=== PATIENT | female | born 1995 | race Caucasian/White ===

== ENCOUNTER 2020-02-21 06:50 | Outpatient (NON) | payer BC, SELFPAY ==
[2020-02-21 23:07] LABS: SARS-CoV-2 RNA PCR Negative
== END 2020-02-21 06:51 ==
PROVIDERS: PCP Nurse Practitioner; Visit Provider Registered Nurse
DX: R51 Headache (principal); R53.83 Other fatigue
CPT/HCPCS: 87635; C9803; U0003

== ENCOUNTER 2025-04-19 19:44 | Observation (INO) | payer OTHER, SELFPAY ==
--- NOTE | ~2025-04-19 | CT_ITS ---
EXAMINATION: CT abdomen pelvis w con DATE: 04/19/2025 23:32 INDICATION: Right lower quadrant abdominal pain. TECHNIQUE: Computed tomography (CT) of the abdomen and pelvis was performed with 100 mL Omnipaque 350 intravenous contrast. Automated exposure control and iterative reconstruction technique were employed. The dose-length product was 305.24 mGy-cm. COMPARISON: None. FINDINGS: The visualized portions of the lung bases demonstrate mild atelectasis. No pleural effusion. The heart size is normal. No pericardial effusion. The liver, gallbladder, spleen, pancreas, adrenal glands, and left kidney are normal. There is a delayed right-sided contrast nephrogram. There is mild right hydronephrosis. There is an 11 mm stone at right ureteropelvic junction. There are no dilated loops of bowel. The appendix is normal. There are no pathologically enlarged lymph nodes. There is a 3.0 cm cyst in right ovary. There is no free intraperitoneal fluid. There is mild thoracic and lumbar spondylosis. IMPRESSION: 1. 11 mm stone at right ureteropelvic junction with mild right hydronephrosis. 2. 3.0 cm cyst in right ovary, likely a follicular cyst. Reviewed, dictated and finalized at location E.
--- NOTE | ~2025-04-19 | XR_ITS ---
EXAMINATION: XR retrograde pyelo w/stent RT DATE: 04/20/2025 15:22 INDICATION: Right nephrolithiasis and hydronephrosis for internal ureteral stent placement TECHNIQUE: 21 fluoroscopic images of the abdomen and pelvis were obtained during procedure performed by Dr. Varma. Radiologist was not present for the imaging or procedure. The amount of fluoroscopy time used during this procedure was 1.1 minutes. Total DAP was 0.825 mGym^2. COMPARISON: CT dated 04/19/2025 FINDINGS: Initial image demonstrates cannulation of the left ureter with retrograde contrast injection demonstrating a normal left renal collecting system. Subsequent image demonstrates a catheter advanced to the region of the right ureteropelvic junction where there is a persistent 1.4 cm obstructing stone. Con trast injection demonstrates mild right hydronephrosis. IMPRESSION: 1. Mild right hydronephrosis with persistent likely partially obstructing 1.4 cm stone at the ureteropelvic junction. See procedure note for further detail. Reviewed, dictated and finalized at location A. IMPRESSION: 1. Mild right hydronephrosis with persistent likely partially obstructing 1.4 c m stone at the ureteropelvic junction. See procedure note for further detail.
[2025-04-19 19:45] VITALS: BP 134/83; PULSE 104; RESP 20; TEMP 36.6; O2SAT 100
[2025-04-19 21:56] VITALS: BP 122/63; PULSE 101; RESP 16; O2SAT 100
[2025-04-19 22:21] LABS: BEDSIDEPREGUCG Negative (Negative)
[2025-04-19 22:28] LABS: Hematocrit 41.2 % (37.0-47.0); Hemoglobin 13.3 g/dL (12.0-15.0); Immature Granulocyte Percent A 0.4 % (0-0.5); Lymphocytes Absolute Auto 1.93 K/mm3 (0.9-3.2); Mean Corpuscular HGB Conc 32.3 g/dl (32-36); Mean Corpuscular Hemoglobin 27.9 pg (26-34); Mean Corpuscular Volume 86.6 fl (80-100); Nucleated Red Blood Cells Absolute Auto 0.000 K/mm3 (0.0-0.012); Nucleated Red Blood Cells Perc 0.0 % (0.0-0.2); Platelet Count Result 205 k/mm3 (150-375); Red Blood Count 4.76 M/mm3 (4.2-5.4); White Blood Count 10.6 K/mm3 (4.5-10.0)
[2025-04-19 22:34] LABS: Add Urine Microscopic? YES; Appearance Urine Clear (Clear); Glucose Urine UA Negative (Negative); Leukocyte Esterase Ur 2+ LEU/UL (Negative); Nitrate Urine Negative (Negative); Non Pathogenic Casts 0-2; Specific Grav Ur 1.010 (1.001-1.035)
[2025-04-19 23:01] LABS: Alanine Aminotransferase 21 U/L (6-35); Albumin Level 4.5 g/dL (3.5-5.1); Alkaline Phosphatase 71 U/L (38-126); Anion Gap 11 mmol/L (4-12); Aspartate Amino Transferase 26 U/L (14-36); Bilirubin,Total 0.7 mg/dL (0.2-1.3); Blood Urea Nitrogen 14 mg/dL (7-17); Calcium 9.2 mg/dL (8.4-10.2); Carbon Dioxide 24 mmol/L (22-30); Chloride 103 mmol/L (98-107); Estimated CRCL calculation 86 ml/min; Estimated Glomerular Filt Rate > 60; Glucose 102 mg/dL (65-110); Lipase 49 U/L (23-300); Potassium 3.6 mmol/L (3.4-5.0); Sodium 138 mmol/L (137-145); Total Protein 8.0 g/dL (6.3-8.2)
--- NOTE | 2025-04-19 23:18 | ED.ABDPAIN ---
HPI - Abdominal Pain General Chief Complaint: Abdominal Pain <Nathaly Zamudio APRN - Last Filed: 04/20/25 03:53> Stated Complaint: right flank pain <Nathaly Zamudio APRN - Last Filed: 04/20/25 03:53> Time Seen by Provider: 04/19/25 22:52 <Nathaly Zamudio APRN - Last Filed: 04/20/25 03:53> History of Present Illness HPI narrative: Patient is a 29-year-old female presents to the ER with complaints of right lower quadrant abdominal pain that radiates to her right flank. She reports that her pain started on Thursday morning, 1 day ago. Patient endorses nausea and lightheadedness but denies vomiting. She denies any recent fevers, urinary symptoms, or chest pain. Patient endorses a history of IBS C and has had a colonoscopy in the past. She reports her last bowel movement was on Thursday and it was small. Patient has a Nexplanon so she is unsure as to when her last menstrual period to place. <Nathaly Zamudio APRN - Last Filed: 04/20/25 03:53> Related Data Home Medications: Home Medications ?Medication ?Instructions ?Recorded ?Confirmed ?Last Taken ?Type linaclotide 145 mcg capsule 290 mcg PO QAM 04/20/25 04/20/25 04/19/25 History (Linzess) <Nathaly Zamudio APRN - Last Filed: 04/20/25 03:53> Allergies/Adverse Reactions: Allergies Allergy/AdvReac Type Severity Reaction Status Date / Time No Known Allergies Allergy Verified 04/20/25 05:14 <Nathaly Zamudio APRN - Last Filed: 04/20/25 03:53> Review of Systems Review of Systems: All systems reviewed & are unremarkable except as noted in HPI and below <Nathaly Zamudio APRN - Last Filed: 04/20/25 03:53> PMFSH Family History Family History: Family History (Updated 04/20/25 @ 05:22 by Lucita Medina RN) Father Cancer Grandparent Cancer <Nathaly Zamudio APRN - Last Filed: 04/20/25 03:53> Social History Social History: Social History Smoking status: Never smoker Alcohol intake: never Substance use: never Lack of Transportation: No Lack of Food: Never True Current Housing: I Have Housing Concerned About Future Housing: No Difficulty Paying Gas/Electric Bills: No Difficulty Paying for Meds: No Currently Unemployed: No Education: High School Diploma/GED Difficulty w/ Childcare or Family Care: No Spiritual care concerns: No <Nathaly Zamudio APRN - Last Filed: 04/20/25 03:53> Exam Narrative: GENERAL: Ill appearing, well-nourished, non-toxic, in no acute distress. HEAD: Normocephalic, atraumatic. NECK: Supple. No adenopathy, no masses. RESPIRATORY: Airway patent, respirations nonlabored. Clear to auscultation bilaterally, no rales, rhonchi, wheezing. CARDIOVASCULAR: Regular rate and rhythm without murmurs, rubs, or gallops. Peripheral pulses 2+ and equal bilaterally. ABDOMINAL: Soft, RLQ tenderness, nondistended, no hepatosplenomegaly. Normoactive BS. MUSCULOSKELETAL: Moves all extremities. Strength/ROM intact without gross deformities. SKIN: Warm, dry, normal color. No rashes. NEURO: A&O X3. Speech clear. Cranial nerves II-XII intact. No ataxic movements. PSYCHIATRIC: Appropriate mood and affect. Normal interaction. <Nathaly Zamudio APRN - Last Filed: 04/20/25 03:53> Course CUSTOMER FIELD REPRESENTATIVE/PA Physician Supervision I was made aware that this patient was being admitted for pain control and been found to have an 11 mm stone. I was available for consultation while patient was in the emergency department but otherwise did not physically examine them and was not directly involved in their care. <Ama Heath MD - Last Filed: 04/21/25 08:05> Vital Signs Vital signs: Vital Signs Temperature 97.8 F 04/19/25 19:45 Pulse Rate 104 H 04/19/25 19:45 Respiratory Rate 20 04/19/25 19:45 Blood Pressure 134/83 04/19/25 19:45 Pulse Oximetry 100 04/19/25 19:45 Oxygen Delivery Room Air 04/19/25 19:45 Temperature 97.4 F L 04/20/25 22:42 Pulse Rate 82 04/20/25 22:42 Respiratory Rate 16 04/20/25 22:42 Blood Pressure 92/55 L 04/20/25 22:42 Pulse Oximetry 95 04/20/25 22:42 Oxygen Delivery Room Air 04/20/25 20:00 Oxygen Flow Rate 8 04/20/25 15:35 <Nathaly Zamudio APRN - Last Filed: 04/20/25 03:53> Vital Signs Temperature 97.8 F 04/19/25 19:45 Pulse Rate 104 H 04/19/25 19:45 Respiratory Rate 20 04/19/25 19:45 Blood Pressure 134/83 04/19/25 19:45 Pulse Oximetry 100 04/19/25 19:45 Oxygen Delivery Room Air 04/19/25 19:45 Temperature 97.4 F L 04/20/25 22:42 Pulse Rate 82 04/20/25 22:42 Respiratory Rate 16 04/20/25 22:42 Blood Pressure 92/55 L 04/20/25 22:42 Pulse Oximetry 95 04/20/25 22:42 Oxygen Delivery Room Air 04/20/25 20:00 Oxygen Flow Rate 8 04/20/25 15:35 <Ama Heath MD - Last Filed: 04/21/25 08:05> MDM - Abdominal Pain MDM Narrative Medical decision making narrative: Patient is a 29-year-old female presents to the ER with complaints of right lower quadrant abdominal pain that radiates to her right flank. She reports that her pain started on Thursday morning, 1 day ago. Patient endorses nausea and lightheadedness but denies vomiting. She denies any recent fevers, urinary symptoms, or chest pain. Patient endorses a history of IBS C and has had a colonoscopy in the past. She reports her last bowel movement was on Thursday and it was small. Patient has a Nexplanon so she is unsure as to when her last menstrual period to place. Labs Ordered: CBC, CMP, UA, lipase Imaging Ordered: CT abdomen pelvis Medications Ordered: Ceftriaxone 1 g IV, 1 L normal saline IV bolus, morphine 4 mg IV, Zofran 4 mg IV, Dilaudid 0.5 mg IV Results: Patient's CT scan indicates an obstructing 11 mm right proximal ureter stone. Mild hydronephrosis and delayed nephrogram of the right kidney. Mild perinephric stranding. Right ovarian cyst measures 3.6 x 2.9 cm. Diagnosis: Kidney stone Consults: 020- Urology, Dr. Varela, who advised pt be admitted to the hospital. He advised pt should be NPO at this time. Urology will consult pt in the morning. Results of imaging and lab work shared with patient and her family. It was advised patient be admitted to the hospital for further evaluation and treatment. Patient and her family verbalized understanding and are in agreement with plan. 0215- Spoke with Dr. Schneider, hospitalist, who was in agreement with plan for admission. Pt will be admitted to the med/surg floor. <Nathaly Zamudoi APRN - Last Filed: 04/20/25 03:53> Differential Diagnosis Differential diagnosis: Likely calculus of kidney, constipation, small bowel obstruction and other (Cholecystitis) <Nathaly Zamudio APRN - Last Filed: 04/20/25 03:53> Lab Data Attestation: I reviewed the patient's lab results. <Nathaly Zamudio APRN - Last Filed: 04/20/25 03:53> Result diagrams: 04/20/25 05:30 04/20/25 05:30 <Nathaly Zamudio APRN - Last Filed: 04/20/25 03:53> Labs: Lab Results 04/19/25 04/19/25 Range/Units 22:19 22:20 WBC 10.6 H (4.5-10.0) K/mm3 RBC 4.76 (4.2-5.4) M/mm3 Hgb 13.3 (12.0-15.0) g/dL Hct 41.2 (37.0-47.0) % MCV 86.6 (80-100) fl MCH 27.9 (26-34) pg MCHC 32.3 (32-36) g/dl RDW 13.2 (11.5-14.5) % Plt Count 205 (150-375) k/mm3 MPV 10.3 (7.4-10.4) fl Immature Gran % (Auto) 0.4 (0-0.5) % Neut % (Auto) 68.8 (45.5-73.1) % Lymph % (Auto) 18.3 (18.3-44.2) % Stewart % (Auto) 9.5 H (2.6-8.5) % Eos % (Auto) 2.5 (0-4.4) % Baso % (Auto) 0.5 (0.2-1.2) % Lymph # (Auto) 1.93 (0.9-3.2) K/mm3 Stewart # (Auto) 1.0 H (0.1-0.6) K/mm3 Eos # (Auto) 0.3 (0-0.3) K/mm3 Baso # (Auto) 0.1 (0.0-0.1) K/mm3 Abs Immat Gran (auto) 0.04 H (0.00-0.031) K/mm3 Absolute Neuts (auto) 7.3 H (1.3-6.7) K/mm3 Absolute Nucleated RBC 0.000 (0.0-0.012) K/mm3 Nucleated RBC % 0.0 (0.0-0.2) % Sodium 138 (137-145) mmol/L Potassium 3.6 (3.4-5.0) mmol/L Chloride 103 (98-107) mmol/L Carbon Dioxide 24 (22-30) mmol/L Anion Gap 11 (4-12) mmol/L BUN 14 (7-17) mg/dL Creatinine 0.90 (0.7-1.0) mg/dL Estim Creat Clear Calc 86 ml/min Estimated GFR > 60 (59 - ) Glucose 102 (65-110) mg/dL Calcium 9.2 (8.4-10.2) mg/dL Total Bilirubin 0.7 (0.2-1.3) mg/dL AST 26 (14-36) U/L ALT 21 (6-35) U/L Alkaline Phosphatase 71 (38-126) U/L Total Protein 8.0 (6.3-8.2) g/dL Albumin 4.5 (3.5-5.1) g/dL Lipase 49 (23-300) U/L Urine Color Yellow (Yellow) Urine Appearance Clear (Clear) Urine pH 7.5 (5.0-9.0) Ur Specific [place] 1.010 (1.001-1.035) Urine Protein Negative (Negative) mg/dL Urine Glucose (UA) Negative (Negative) mg/dL Urine Ketones Negative (Negative) mg/dL Ur Blood (Man) Negative (Negative) Urine Nitrate Negative (Negative) Urine Bilirubin Negative (Negative) Urine Urobilinogen 1.0 (<2.0) mg/dL Leukocyte Esterase Rfl 2+ H (Negative) VIOLETTE/UL Urine RBC 0-2 (0-2) /hpf Urine WBC 11-20 H (0-3) /hpf Ur Squamous Epith Cells None seen (Few) /hpf Urine Bacteria None seen /hpf Urine Casts 0-2 POC Urine HCG, Qual Negative (Negative) <Nathaly Zamudio, USER EXPERIENCE RESEARCHER - Last Filed: 04/20/25 03:53> Lab Results 04/19/25 04/19/25 Range/Units 22:19 22:20 WBC 10.6 H (4.5-10.0) K/mm3 RBC 4.76 (4.2-5.4) M/mm3 Hgb 13.3 (12.0-15.0) g/dL Hct 41.2 (37.0-47.0) % MCV 86.6 (80-100) fl MCH 27.9 (26-34) pg MCHC 32.3 (32-36) g/dl RDW 13.2 (11.5-14.5) % Plt Count 205 (150-375) k/mm3 MPV 10.3 (7.4-10.4) fl Immature Gran % (Auto) 0.4 (0-0.5) % Neut % (Auto) 68.8 (45.5-73.1) % Lymph % (Auto) 18.3 (18.3-44.2) % Stewart % (Auto) 9.5 H (2.6-8.5) % Eos % (Auto) 2.5 (0-4.4) % Baso % (Auto) 0.5 (0.2-1.2) % Lymph # (Auto) 1.93 (0.9-3.2) K/mm3 Stewart # (Auto) 1.0 H (0.1-0.6) K/mm3 Eos # (Auto) 0.3 (0-0.3) K/mm3 Baso # (Auto) 0.1 (0.0-0.1) K/mm3 Abs Immat Gran (auto) 0.04 H (0.00-0.031) K/mm3 Absolute Neuts (auto) 7.3 H (1.3-6.7) K/mm3 Absolute Nucleated RBC 0.000 (0.0-0.012) K/mm3 Nucleated RBC % 0.0 (0.0-0.2) % Sodium 138 (137-145) mmol/L Potassium 3.6 (3.4-5.0) mmol/L Chloride 103 (98-107) mmol/L Carbon Dioxide 24 (22-30) mmol/L Anion Gap 11 (4-12) mmol/L BUN 14 (7-17) mg/dL Creatinine 0.90 (0.7-1.0) mg/dL Estim Creat Clear Calc 86 ml/min Estimated GFR > 60 (59 - ) Glucose 102 (65-110) mg/dL Calcium 9.2 (8.4-10.2) mg/dL Total Bilirubin 0.7 (0.2-1.3) mg/dL AST 26 (14-36) U/L ALT 21 (6-35) U/L Alkaline Phosphatase 71 (38-126) U/L Total Protein 8.0 (6.3-8.2) g/dL Albumin 4.5 (3.5-5.1) g/dL Lipase 49 (23-300) U/L Urine Color Yellow (Yellow) Urine Appearance Clear (Clear) Urine pH 7.5 (5.0-9.0) Ur Specific [place] 1.010 (1.001-1.035) Urine Protein Negative (Negative) mg/dL Urine Glucose (UA) Negative (Negative) mg/dL Urine Ketones Negative (Negative) mg/dL Ur Blood (Man) Negative (Negative) Urine Nitrate Negative (Negative) Urine Bilirubin Negative (Negative) Urine Urobilinogen 1.0 (<2.0) mg/dL Leukocyte Esterase Rfl 2+ H (Negative) VIOLETTE/UL Urine RBC 0-2 (0-2) /hpf Urine WBC 11-20 H (0-3) /hpf Ur Squamous Epith Cells None seen (Few) /hpf Urine Bacteria None seen /hpf Urine Casts 0-2 POC Urine HCG, Qual Negative (Negative) <Ama Heath MD - Last Filed: 04/21/25 08:05> Imaging Data Attestation: I personally reviewed and interpreted this imaging study as follows: <Nathaly Zamudio APRN - Last Filed: 04/20/25 03:53> Radiologist's impression: ITS Impressions Abdomen/Pelvis CT 04/20/25 08:00 IMPRESSION: 1. 11 mm stone at right ureteropelvic junction with mild right hydronephrosis. 2. 3.0 cm cyst in right ovary, likely a follicular cyst. Patient's CT scan indicates an obstructing 11 mm right proximal ureteral stone. Mild hydronephrosis and delayed nephrogram of the right kidney. Mild perinephric stranding. Right ovarian cyst measures 3.6 x 2.9 cm. <Nathaly Zamudio APRN - Last Filed: 04/20/25 03:53> ITS Impressions Abdomen/Pelvis CT 04/20/25 08:00 IMPRESSION: 1. 11 mm stone at right ureteropelvic junction with mild right hydronephrosis. 2. 3.0 cm cyst in right ovary, likely a follicular cyst. <Ama Heath MD - Last Filed: 04/21/25 08:05> Discharge Plan Discharge Clinical Impression: Kidney stone on right side, Hydronephrosis, Urinary tract infection <Nathaly Zamudio APRN - Last Filed: 04/20/25 03:53> Patient Disposition: Still a Patient <Nathaly Zamudio APRN - Last Filed: 04/20/25 03:53> Condition: Stable <Nathaly Zamudio APRN - Last Filed: 04/20/25 03:53>
--- NOTE | 2025-04-19 23:24 | PC.NURSE ---
Pt. to CT.
[2025-04-19] MEDS: SODIUM CHLORIDE 0.9% IV 1,000 ML 999 ML IV CONT (23:40)
[2025-04-19] MEDS: ONDANSETRON INJ 4 MG/2 ML VIAL IV PUSH (23:40)
[2025-04-19] MEDS: MORPHINE SULFATE (*CRX) 4 MG/ML INJ IV PUSH (23:41)
[2025-04-20] VITALS (13 sets, daily range): BP systolic 92–135; BP diastolic 49–92; PULSE 82–128; RESP 13–20; TEMP 36.2–38.8; O2SAT 93–100; BMI 23.2
[2025-04-20] MEDS: cefTRIAXone 1 GM in SODIUM CHLORIDE 0.9% IV 50 ML 100 ML IVPB (01:03)
[2025-04-20] MEDS: HYDROmorphone HCL INJ (*CRX) 1 MG/ML SYR 0.5 MG IV PUSH ×2 (01:35→04:41)
--- NOTE | 2025-04-20 02:31 | P.HP_ITS ---
H&P: HPI History of Present Illness Date/Time: 04/20/25 02:31 Chief Complaint: Abdominal pain Narrative: 29-year-old female with PMH nicotine vaping, presents to [facility] ER on 04/19/2025 complaining of right-sided abdominal pain. She has a history of UTIs, this feels much worse. She does not have burning on urination. Urinalysis positive for leukocyte esterase and WBC. CT abdomen pelvis showing 1 1 mm right-sided proximal ureter stone. Urology consulted. Hospitalist being asked to admit. Patient received ceftriaxone, Dilaudid, morphine, 1 L normal saline bolus. Resting comfortably. Review of Systems Review of Systems: All systems reviewed & are unremarkable except as noted in HPI and below (Subjective) Meds Home Medications and Allergies Allergies Allergy/AdvReac Type Severity Reaction Status Date / Time No Known Allergies Allergy Verified 04/19/25 19:48 Vital Signs Vital Signs - 24 hr 04/19/25 19:45 04/19/25 21:56 04/20/25 01:06 Temperature 97.8 F Pulse Rate 104 H 101 H 106 H Respiratory Rate 20 16 13 Blood Pressure 134/83 122/63 135/86 Pulse Oximetry 100 100 100 Oxygen Delivery Room Air Room Air Exam Const: General: comfortable and no acute distress Eyes: Pupils: Equal, round and reactive pupils present Neck: Neck: supple Resp: Effort & Inspection: normal respiratory effort Auscultation: clear to auscultation bilaterally Cardio: Rate: regular rate Rhythm: regular rhythm GI: Inspection: non-distended GI Palp: Yes Soft to palpation, Yes Tenderness to palpation present (GI) and No Guarding due to palpation present (GI) Neuro: Motor exam (neuro): 5/5 motor strength present throughout Extrem: General: no edema H&P: Results Labs Labs: Short CBC 04/19/25 Range/Units 22:20 WBC 10.6 H (4.5-10.0) K/mm3 Hgb 13.3 (12.0-15.0) g/dL Hct 41.2 (37.0-47.0) % Plt Count 205 (150-375) k/mm3 BMP 04/19/25 22:20 Sodium 138 Potassium 3.6 Chloride 103 Carbon Dioxide 24 BUN 14 Creatinine 0.90 Glucose 102 Calcium 9.2 Liver Function 04/19/25 Range/Units 22:20 Total Bilirubin 0.7 (0.2-1.3) mg/dL AST 26 (14-36) U/L ALT 21 (6-35) U/L Alkaline Phosphatase 71 (38-126) U/L Albumin 4.5 (3.5-5.1) g/dL Urine 04/19/25 Range/Units 22:20 Urine Color Yellow (Yellow) Urine Appearance Clear (Clear) Urine pH 7.5 (5.0-9.0) Ur Specific [place] 1.010 (1.001-1.035) Urine Protein Negative (Negative) mg/dL Urine Glucose (UA) Negative (Negative) mg/dL Assessment and Plan Assessment and plan (1) Kidney stone on right side: Code(s): N20.0 - Calculus of kidney Status: Acute (2) Urinary tract infection: Code(s): N39.0 - Urinary tract infection, site not specified Status: Acute (3) Hydronephrosis: Code(s): N13.30 - Unspecified hydronephrosis Status: Acute Plan 29-year-old female with PMH nicotine vaping, presents to [facility] ER on 04/19/2025 complaining of right-sided abdominal pain. She has a history of UTIs, this feels much worse. She does not have burning on urination. Urinalysis positive for leukocyte esterase and WBC. CT abdomen pelvis showing 11 mm right-sided proximal ureter stone. Urology consulted. Hospitalist being asked to admit. Patient received ceftriaxone, Dilaudid, morphine, 1 L normal saline bolus. Resting comfortably. --- Fluids, pain control, Zofran p.r.n.. NPO. Urology to see. Follow-up urine culture. Received ceftriaxone. Patient wishes to be full code. SCDs. Hospitalist MIPS Advance Care Plan I have confirmed that the patient's Advanced Care Plan is present, code status is documented, or surrogate decision maker is listed in patient medical record.: Yes Medication Reconciliation I have utilized all available resources to obtain, update and review the patients current medications (includes all prescriptions, OTC, herbals, cannabis, and nutritional supplements).: Yes
[2025-04-20] MEDS: MORPHINE SULFATE (*CRX) 4 MG/ML INJ 2 MG IV PUSH ×5 (04:06→21:51)
[2025-04-20] MEDS: SODIUM CHLORIDE 0.9% IV 1,000 ML 125 ML IV CONT ×2 (05:09→12:08)
--- NOTE | 2025-04-20 05:19 | ADMGEN ---
This patient, Pretty Ly, was admitted to 3 [facility] Surg Room 310-01. Patient/family oriented to hospital policies and general routines including ID bracelet, bed and alarms, visiting hours, pain management, procedures, bathroom and other care routines, personal items, smoking policy, room service/diet, and visiting hours. Information on how to activate the Rapid Response Team has been discussed. Patient/Family are encouraged to report perceived risks to care and to ask questions if they do not understand what they are told or what they should do.
[2025-04-20 06:07] LABS: Hematocrit 36.5 % (37.0-47.0); Hemoglobin 11.8 g/dL (12.0-15.0); Immature Granulocyte Percent A 0.3 % (0-0.5); Lymphocytes Absolute Auto 1.25 K/mm3 (0.9-3.2); Mean Corpuscular HGB Conc 32.3 g/dl (32-36); Mean Corpuscular Hemoglobin 28.1 pg (26-34); Mean Corpuscular Volume 86.9 fl (80-100); Nucleated Red Blood Cells Absolute Auto 0.000 K/mm3 (0.0-0.012); Nucleated Red Blood Cells Perc 0.0 % (0.0-0.2); Platelet Count Result 171 k/mm3 (150-375); Red Blood Count 4.20 M/mm3 (4.2-5.4); White Blood Count 9.4 K/mm3 (4.5-10.0)
--- NOTE | 2025-04-20 06:12 | WPDURCON ---
Assessment and Plan Assessment and plan (1) Kidney stone on right side: Code(s): N20.0 - Calculus of kidney Status: Acute (2) Hydronephrosis: Code(s): N13.30 - Unspecified hydronephrosis Status: Acute (3) Urinary tract infection: Code(s): N39.0 - Urinary tract infection, site not specified Status: Acute Assessment and Plan: Cystoscopy with right ureteral stent placement today Definitive stone treatment with right ESWL once infection has been treated Urology Consult Note HPI Date Seen: 04/20/25 Requesting Physician: Jackelyn Schneider MD Primary Care Provider: Giulia Griggs, TIN WHIZ MACHINE OPERATOR Consult Narrative Narrative: Pretty Ly is a 29 year old female without prior history of urolithiasis presents the emergency department with right flank pain. She denies fevers chills gross hematuria but has had nausea. Imaging demonstrates an 11 mm right UPJ calculus. Review of Systems Review of Systems: All systems reviewed & are unremarkable except as noted in HPI and below PMFSH Family History Family History (Updated 04/20/25 @ 05:22 by Lucita Medina RN) Father Cancer Grandparent Cancer Social History Social History Smoking status: Never smoker Alcohol intake: never Substance use: never Lack of Transportation: No Lack of Food: Never True Current Housing: I Have Housing Concerned About Future Housing: No Difficulty Paying Gas/Electric Bills: No Difficulty Paying for Meds: No Currently Unemployed: No Education: High School Diploma/GED Difficulty w/ Childcare or Family Care: No Spiritual care concerns: No Meds Home Medications and Allergies Home Medications ?Medication ?Instructions ?Recorded ?Confirmed ?Type linaclotide 145 mcg capsule 290 mcg PO QAM 04/20/25 04/20/25 History (Linzess) Allergies Allergy/AdvReac Type Severity Reaction Status Date / Time No Known Allergies Allergy Verified 04/20/25 05:14 Vital Signs Vital Signs - 24 hr 04/19/25 19:45 04/19/25 21:56 04/20/25 01:06 Temperature 97.8 F Pulse Rate 104 H 101 H 106 H Respiratory Rate 20 16 13 Blood Pressure 134/83 122/63 135/86 Pulse Oximetry 100 100 100 Oxygen Delivery Room Air Room Air 04/20/25 04:10 04/20/25 04:15 Temperature Pulse Rate 103 H 103 H Respiratory Rate 20 20 Blood Pressure 132/78 132/78 Pulse Oximetry 99 99 Oxygen Delivery Exam Const: General: no acute distress Resp: Effort & Inspection: normal respiratory effort GI: Inspection: non-distended GI Palp: No abdominal tenderness and No Guarding due to palpation present (GI) Auscultation: normal bowel sounds Results Labs 04/19/25 22:20 04/19/25 22:20 Labs: Short CBC 04/19/25 Range/Units 22:20 WBC 10.6 H (4.5-10.0) K/mm3 Hgb 13.3 (12.0-15.0) g/dL Hct 41.2 (37.0-47.0) % Plt Count 205 (150-375) k/mm3 BMP 04/19/25 22:20 Sodium 138 Potassium 3.6 Chloride 103 Carbon Dioxide 24 BUN 14 Creatinine 0.90 Glucose 102 Calcium 9.2 Liver Function 04/19/25 Range/Units 22:20 Total Bilirubin 0.7 (0.2-1.3) mg/dL AST 26 (14-36) U/L ALT 21 (6-35) U/L Alkaline Phosphatase 71 (38-126) U/L Albumin 4.5 (3.5-5.1) g/dL Urine 04/19/25 Range/Units 22:20 Urine Color Yellow (Yellow) Urine Appearance Clear (Clear) Urine pH 7.5 (5.0-9.0) Ur Specific [place] 1.010 (1.001-1.035) Urine Protein Negative (Negative) mg/dL Urine Glucose (UA) Negative (Negative) mg/dL
[2025-04-20 06:19] LABS: INR 1.1; Prothrombin Time 14.0 Seconds (11.1-14.7)
--- NOTE | 2025-04-20 06:23 | WPDHPUPDATE1 ---
History and Physical Update Update Date/Time: 04/20/25 06:23 History and Physical has been reviewed, including an updated exam of the patient. There are NO changes in the patient's condition. Risks, benefits, and alternatives have been discussed and questions answered. Patient agrees to proceed with procedure.
[2025-04-20 06:35] LABS: Anion Gap 9 mmol/L (4-12); Blood Urea Nitrogen 10 mg/dL (7-17); Calcium 8.5 mg/dL (8.4-10.2); Carbon Dioxide 22 mmol/L (22-30); Chloride 107 mmol/L (98-107); Estimated CRCL calculation 89 ml/min; Estimated Glomerular Filt Rate > 60; Glucose 134 mg/dL (65-110); Magnesium 2.0 mg/dL (1.6-2.3); Potassium 3.8 mmol/L (3.4-5.0); Sodium 138 mmol/L (137-145)
[2025-04-20] MEDS: ONDANSETRON INJ 4 MG/2 ML VIAL IV PUSH ×2 (07:10→12:08)
--- NOTE | 2025-04-20 09:33 | PM.IMPN ---
Progress Note: A&P Assessment and Plan (1) Kidney stone on right side: Code(s): N20.0 - Calculus of kidney Status: Acute (2) Urinary tract infection: Code(s): N39.0 - Urinary tract infection, site not specified Status: Acute (3) Hydronephrosis: Code(s): N13.30 - Unspecified hydronephrosis Status: Acute Plan 29-year-old female with PMH nicotine vaping, presents to [facility] ER on 04/19/2025 complaining of right-sided abdominal pain. No dysuria or fevers. UA 10-20 WBC's, no RBC's nitrites, or visible bacteria. CT abdomen pelvis showed a 11 mm right-sided proximal stone in the proximal ureter and mild hydronephrosis. Urology consulted. s/p ceftriaxone. Also treated with Dilaudid, but prefers not to have that again. Ureteral stone Hydronephrosis CT abd/pelvis showed an 11mm right ureteropelvic junction with mild right hydronephrosis --Fluids, pain control --Urology following, s/p cystoscopy, right ureteral stent placement --Continue Ceftiraxone Pyuria--11-20 WBC's --Continue Ceftiraxone perioperative. Not clearly infected Acute pain --Oxycodone, Morphine prn --Resting comfortably. --Continue fluids --Zofran p.r.n. FULL CODE SCDs Time Spent With Patient Time: 59 minutes Subjective Date/time seen: 04/20/25 09:33 Interval history: Woke up from sleep and had mild nausea, CT abd/pelvis showed Right kidney stone/hydronephrosis. Urology consulted. Planning Cystoscopy with stent today She reports no dysuria prior to this so not clearly a UTI with 10-20 WBC's on UA. Planning right ESWL outpatient Review of Systems Review of Systems: All systems reviewed & are unremarkable except as noted in HPI and below (Subjective) Exam Narrative: General - Awake and alert. No acute distress Eyes - PERRLA, EOM intact ENT - No thrush, No erythema Neck - No noticeable or palpable swelling Lymph Nodes - No lymphadenopathy Cardiovascular - RRR no m/r/g, no JVD Lungs: Clear to auscultation, No wheezing, no use of accessory muscles, no crackles Skin - Skin warm and dry, no wounds or rashes Abdomen - Normal bowel sounds, abdomen soft and nontender Extremities - No edema, cyanosis or clubbing Musculoskeletal - 5/5 strength, normal range of motion, no swollen or erythematous joints. Neurological ? Alert and oriented x 3, CN 2-12 grossly intact. Psych: Normal mood and affect Objective Data Vital Signs Vital Signs: Vital Signs - 24 hr 04/19/25 19:45 04/19/25 21:56 04/20/25 01:06 Temperature 97.8 F Pulse Rate 104 H 101 H 106 H Respiratory Rate 20 16 13 Blood Pressure 134/83 122/63 135/86 Pulse Oximetry 100 100 100 Oxygen Delivery Room Air Room Air 04/20/25 04:10 04/20/25 04:15 04/20/25 04:55 Temperature 97.1 F L Pulse Rate 103 H 103 H 128 H Respiratory Rate 20 20 20 Blood Pressure 132/78 132/78 128/92 H Pulse Oximetry 99 99 93 Oxygen Delivery 04/20/25 06:32 Temperature Pulse Rate 128 H Respiratory Rate 20 Blood Pressure Pulse Oximetry 93 Oxygen Delivery Room Air Intake/Output Intake/Output: Intake & Output 04/17/25 04/18/25 04/19/25 04/20/25 23:59 23:59 23:59 23:59 Intake Total 1050 Balance 1050 Meds/Results Medications: Active Medications Generic Name Dose Route Start Last Admin Trade Name Freq PRN Reason Stop Dose Admin Sodium Chloride 1,000 mls @ 125 mls/hr 04/20/25 02:20 04/20/25 05:09 Normal Saline Iv IV CONT 125 mls/hr .Q8H ANALISA Administration Morphine Sulfate 2 mg 04/20/25 02:31 04/20/25 09:23 Morphine Sulfate (*Crx) 4 Mg/Ml Inj IV PUSH 2 mg Q2H PRN Administration Pain Rated 7-10 Ondansetron HCl 4 mg 04/20/25 02:19 04/20/25 07:10 Ondansetron Inj 4 Mg/2 Ml Vial IV PUSH 4 mg Q4H PRN Administration Nausea Radiology Results: ITS Impressions Abdomen/Pelvis CT 04/20/25 08:00 IMPRESSION: 1. 11 mm stone at right ureteropelvic junction with mild right hydronephrosis. 2. 3.0 cm cyst in right ovary, likely a follicular cyst. Labs Labs: Laboratory Results - last 24 hr 04/19/25 04/19/25 04/20/25 22:19 22:20 05:30 WBC 10.6 H 9.4 RBC 4.76 4.20 Hgb 13.3 11.8 L Hct 41.2 36.5 L MCV 86.6 86.9 MCH 27.9 28.1 MCHC 32.3 32.3 RDW 13.2 13.3 Plt Count 205 171 MPV 10.3 10.3 Immature Gran % (Auto) 0.4 0.3 Neut % (Auto) 68.8 74.1 H Lymph % (Auto) 18.3 13.3 L [place] % (Auto) 9.5 H 9.8 H Eos % (Auto) 2.5 2.1 Baso % (Auto) 0.5 0.4 Lymph # (Auto) 1.93 1.25 [place] # (Auto) 1.0 H 0.9 H Eos # (Auto) 0.3 0.2 Baso # (Auto) 0.1 0.0 Abs Immat Gran (auto) 0.04 H 0.03 Absolute Neuts (auto) 7.3 H 7.0 H Absolute Nucleated RBC 0.000 0.000 Nucleated RBC % 0.0 0.0 PT 14.0 INR 1.1 Sodium 138 138 Potassium 3.6 3.8 Chloride 103 107 Carbon Dioxide 24 22 Anion Gap 11 9 BUN 14 10 Creatinine 0.90 0.87 Estim Creat Clear Calc 86 89 Estimated GFR > 60 > 60 Glucose 102 134 H Calcium 9.2 8.5 Magnesium 2.0 Total Bilirubin 0.7 AST 26 ALT 21 Alkaline Phosphatase 71 Total Protein 8.0 Albumin 4.5 Lipase 49 Urine Color Yellow Urine Appearance Clear Urine pH 7.5 Ur Specific [place] 1.010 Urine Protein Negative Urine Glucose (UA) Negative Urine Ketones Negative Ur Blood (Man) Negative Urine Nitrate Negative Urine Bilirubin Negative Urine Urobilinogen 1.0 Leukocyte Esterase Rfl 2+ H Urine RBC 0-2 Urine WBC 11-20 H Ur Squamous Epith Cells None seen Urine Bacteria None seen Urine Casts 0-2 POC Urine HCG, Qual Negative Hospitalist MIPS Advance Care Plan I have confirmed that the patient's Advanced Care Plan is present, code status is documented, or surrogate decision maker is listed in patient medical record.: Yes Medication Reconciliation I have utilized all available resources to obtain, update and review the patients current medications (includes all prescriptions, OTC, herbals, cannabis, and nutritional supplements).: Yes
--- NOTE | 2025-04-20 14:06 | WPDANESEPPF ---
Anes - Initial Pre Proc Eval Procedure: Operation Date: 04/20/25 15:15 Proposed Procedures p Cystoscopy, Right Stent Placement - Jermaine Varma MD Date/Time: 04/20/25 14:06 Surgeon: Jackelyn Schneider MD Pre Op Diagnosis: Kidney stone (11mm), Mild hydronephrosis Patient Data Age: 29 Gender: F Height: 1.75 m Weight: 71.4 kg Last Vital Signs Temp 36.2 C L 04/20/25 04:55 Pulse 128 H 04/20/25 08:00 Resp 20 04/20/25 08:00 BP 128/92 H 04/20/25 04:55 Pulse Ox 93 04/20/25 08:00 O2 Del Method Room Air 04/20/25 08:00 Allergies Allergy/AdvReac Type Severity Reaction Status Date / Time No Known Allergies Allergy Verified 04/20/25 05:14 Home Medications ?Medication ?Instructions ?Recorded ?Confirmed ?Type linaclotide 145 mcg capsule 290 mcg PO QAM 04/20/25 04/20/25 History (Linzess) Laboratory Tests 04/19/25 04/19/25 04/20/25 22:19 22:20 05:30 WBC 10.6 H K/mm3 9.4 K/mm3 (4.5-10.0) (4.5-10.0) RBC 4.76 M/mm3 4.20 M/mm3 (4.2-5.4) (4.2-5.4) Hgb 13.3 g/dL 11.8 L g/dL (12.0-15.0) (12.0-15.0) Hct 41.2 % 36.5 L % (37.0-47.0) (37.0-47.0) MCV 86.6 fl 86.9 fl (80-100) (80-100) MCH 27.9 pg 28.1 pg (26-34) (26-34) MCHC 32.3 g/dl 32.3 g/dl (32-36) (32-36) RDW 13.2 % 13.3 % (11.5-14.5) (11.5-14.5) Plt Count 205 k/mm3 171 k/mm3 (150-375) (150-375) MPV 10.3 fl 10.3 fl (7.4-10.4) (7.4-10.4) Immature Gran % (Auto) 0.4 % 0.3 % (0-0.5) (0-0.5) Neut % (Auto) 68.8 % 74.1 H % (45.5-73.1) (45.5-73.1) Lymph % (Auto) 18.3 % 13.3 L % (18.3-44.2) (18.3-44.2) [place] % (Auto) 9.5 H % 9.8 H % (2.6-8.5) (2.6-8.5) Eos % (Auto) 2.5 % 2.1 % (0-4.4) (0-4.4) Baso % (Auto) 0.5 % 0.4 % (0.2-1.2) (0.2-1.2) Lymph # (Auto) 1.93 K/mm3 1.25 K/mm3 (0.9-3.2) (0.9-3.2) [place] # (Auto) 1.0 H K/mm3 0.9 H K/mm3 (0.1-0.6) (0.1-0.6) Eos # (Auto) 0.3 K/mm3 0.2 K/mm3 (0-0.3) (0-0.3) Baso # (Auto) 0.1 K/mm3 0.0 K/mm3 (0.0-0.1) (0.0-0.1) Abs Immat Gran (auto) 0.04 H K/mm3 0.03 K/mm3 (0.00-0.031) (0.00-0.031) Absolute Neuts (auto) 7.3 H K/mm3 7.0 H K/mm3 (1.3-6.7) (1.3-6.7) Absolute Nucleated RBC 0.000 K/mm3 0.000 K/mm3 (0.0-0.012) (0.0-0.012) Nucleated RBC % 0.0 % 0.0 % (0.0-0.2) (0.0-0.2) PT 14.0 Seconds (11.1-14.7) INR 1.1 Sodium 138 mmol/L 138 mmol/L (137-145) (137-145) Potassium 3.6 mmol/L 3.8 mmol/L (3.4-5.0) (3.4-5.0) Chloride 103 mmol/L 107 mmol/L (98-107) (98-107) Carbon Dioxide 24 mmol/L 22 mmol/L (22-30) (22-30) Anion Gap 11 mmol/L 9 mmol/L (4-12) (4-12) BUN 14 mg/dL 10 mg/dL (7-17) (7-17) Creatinine 0.90 mg/dL 0.87 mg/dL (0.7-1.0) (0.7-1.0) Estim Creat Clear Calc 86 ml/min 89 ml/min Estimated GFR > 60 > 60 (59 - ) (59 - ) Glucose 102 mg/dL 134 H mg/dL (65-110) (65-110) Calcium 9.2 mg/dL 8.5 mg/dL (8.4-10.2) (8.4-10.2) Magnesium 2.0 mg/dL (1.6-2.3) Total Bilirubin 0.7 mg/dL (0.2-1.3) AST 26 U/L (14-36) ALT 21 U/L (6-35) Alkaline Phosphatase 71 U/L (38-126) Total Protein 8.0 g/dL (6.3-8.2) Albumin 4.5 g/dL (3.5-5.1) Lipase 49 U/L (23-300) Urine Color Yellow (Yellow) Urine Appearance Clear (Clear) Urine pH 7.5 (5.0-9.0) Ur Specific [place] 1.010 (1.001-1.035) Urine Protein Negative mg/dL (Negative) Urine Glucose (UA) Negative mg/dL (Negative) Urine Ketones Negative mg/dL (Negative) Ur Blood (Man) Negative (Negative) Urine Nitrate Negative (Negative) Urine Bilirubin Negative (Negative) Urine Urobilinogen 1.0 mg/dL (<2.0) Leukocyte Esterase Rfl 2+ H VIOLETTE/UL (Negative) Urine RBC 0-2 /hpf (0-2) Urine WBC 11-20 H /hpf (0-3) Ur Squamous Epith Cells None seen /hpf (Few) Urine Bacteria None seen /hpf Urine Casts 0-2 POC Urine HCG, Qual Negative (Negative) Patient hx anesthesia problems: none Family hx anesthesia problems: none Results Review: All pre-operative results and documents have been reviewed as part of the pre-operative evaluation. [facility] Family History Family History (Updated 04/20/25 @ 05:22 by Lucita Medina RN) Father Cancer Grandparent Cancer Social History Social History Smoking status: Never smoker Alcohol intake: never Substance use: never Lack of Transportation: No Lack of Food: Never True Current Housing: I Have Housing Concerned About Future Housing: No Difficulty Paying Gas/Electric Bills: No Difficulty Paying for Meds: No Currently Unemployed: No Education: High School Diploma/GED Difficulty w/ Childcare or Family Care: No Spiritual care concerns: No Anes - Eval Final PreProcedure Day of Procedure 04/20/25 14:06 Patient weight: normal Heart: regular rate and rhythm Lungs: clear to auscultation Airway: Mallampati scale class II Neurological: alert and oriented Last oral intake: >/= 8 hours ASA classification: II Emergent: no Anesthetic plan: proceed Anesthesia type and monitoring: general LMA and standard monitoring Results Review: All pre-operative results and documents have been reviewed as part of the pre-operative evaluation. Informed Consent: The patient's anesthetic plan and its attendant risks and benefits were discussed with the patient/family/POA. Questions were solicited and answers provided to the satisfaction of the patient/family/POA.
[2025-04-20] MEDS: LACTATED RINGERS 1,000 ML 30 ML IV CONT (14:37)
--- NOTE | 2025-04-20 15:13 | W.PM.PROC2 ---
Procedure Note - Detailed Date of Procedure 04/20/25 Pre-op Diagnosis Right UPJ stone (11mm), Mild hydronephrosis Post-op Diagnosis Same Procedure Performed Cystoscopy, bilateral retrograde pyelography, right ureteral stent placement Surgeon Jermaine Varma MD Anesthesia General Description of Procedure Patient brought the operative suite where she has prepped draped in routine sterile fashion in dorsal lithotomy position after the uneventful induction of a general LMA anesthetic. Cystoscopy was undertaken with a 19 F rigid cystoscope. Bladder was normal without mucosal hyperemia cy neoplasm foreign body or other abnormal findings. She has a single orthotopic ureteral orifice. There is a suggestion of a possible calcification in her left distal ureter so I did a quick left retrograde pyelogram without significant findings. I did this with a [place] catheter. I then performed a right retrograde pyelogram which outlined her large UPJ calculus. A 4.8 F variable length stent was positioned with the proximal coil in the right collecting system a distal coil in the bladder. Scopes and wires were removed and she was taken recovery room good condition. Drains Yes Pathology None sent Complications No immediate complications
[2025-04-21] MEDS: SODIUM CHLORIDE 0.9% IV 1,000 ML 125 ML IV CONT ×3 (00:21→09:00)
[2025-04-21] MEDS: MORPHINE SULFATE (*CRX) 4 MG/ML INJ 2 MG IV PUSH (05:04)
--- NOTE | 2025-04-21 08:22 | P.PNUR_ITS ---
Progress Note: A&P Assessment and Plan (1) Kidney stone on right side: Code(s): N20.0 - Calculus of kidney Status: Acute (2) Hydronephrosis: Code(s): N13.30 - Unspecified hydronephrosis Status: Acute (3) Urinary tract infection: Code(s): N39.0 - Urinary tract infection, site not specified Status: Acute Assessment and Plan: * Acute renal colic resolved with stent placement. Tolerating stent with mild discomfort. Will add tamsulosin for stent discomfort * Discharge on appropriate oral antibiotics cultures complete. * My office will schedule right ESWL for a couple weeks in the future. Subjective Subjective Date/Time Seen: 04/21/25 08:22 Interval history: feeling better, resolution of severe renal colic. Mild stent irritation. Review of Systems Review of Systems: All systems reviewed & are unremarkable except as noted in HPI and below Cardiovascular: Cardiovascular: Denies chest pain, Denies lightheadedness, Denies palpitations and Denies dyspnea Respiratory: Respiratory: Denies dyspnea Gastrointestinal: Gastrointestinal: Denies diarrhea, Denies nausea and Denies vomiting Genitourinary: Genitourinary: Denies hematuria and Denies dysuria Endocrine: Endocrine: Denies palpitations Exam Const: General: no acute distress Resp: Effort & Inspection: normal respiratory effort GI: Inspection: non-distended GI Palp: No abdominal tenderness and No Guarding due to palpation present (GI) Auscultation: normal bowel sounds Objective Data Vital Signs Vital Signs: Vital Signs - 24 hr 04/20/25 14:00 04/20/25 14:33 04/20/25 15:18 Temperature 97.4 F L 101.9 F H 100.1 F H Pulse Rate 87 104 H 88 Respiratory Rate 14 14 Blood Pressure 100/58 L 107/53 L 98/54 L Pulse Oximetry 100 100 100 Oxygen Delivery Room Air Simple Face Mask Oxygen Flow Rate 8 04/20/25 15:35 04/20/25 15:50 04/20/25 16:06 Temperature 100.1 F H Pulse Rate 87 90 95 Respiratory Rate 16 16 18 Blood Pressure 94/49 L 93/60 L 96/57 L Pulse Oximetry 100 100 99 Oxygen Delivery Simple Face Mask Room Air Room Air Oxygen Flow Rate 8 04/20/25 20:00 04/20/25 22:42 Temperature 97.4 F L Pulse Rate 82 Respiratory Rate 16 Blood Pressure 92/55 L Pulse Oximetry 95 Oxygen Delivery Room Air Oxygen Flow Rate Intake/Output Intake/Output: Intake & Output 04/18/25 04/19/25 04/20/25 04/21/25 23:59 23:59 23:59 23:59 Intake Total 3272.9 595.8 Output Total 1000 950 Balance 2272.9 -354.2 Meds/Results Medications: Active Medications Generic Name Dose Route Start Last Admin Trade Name Freq PRN Reason Stop Dose Admin Fentanyl Citrate 25 mcg 04/20/25 14:06 Fentanyl Citrate Inj (*Crx) 100 Mcg/2 Ml Vial IV PUSH Q2M PRN Pain Sodium Chloride 1,000 mls @ 125 mls/hr 04/20/25 02:20 04/21/25 05:07 Normal Saline Iv IV CONT 125 mls/hr .Q8H ANALISA Administration Morphine Sulfate 2 mg 04/20/25 02:31 04/21/25 05:04 Morphine Sulfate (*Crx) 4 Mg/Ml Inj IV PUSH 2 mg Q2H PRN Administration Pain Rated 7-10 Ondansetron HCl 4 mg 04/20/25 02:19 04/20/25 12:08 Ondansetron Inj 4 Mg/2 Ml Vial IV PUSH 4 mg Q4H PRN Administration Nausea Ondansetron HCl 4 mg 04/20/25 14:06 Ondansetron Inj 4 Mg/2 Ml Vial IV PUSH ONCE PRN Nausea Oxycodone HCl 5 mg 04/20/25 14:06 Oxycodone Hcl (*Crx) 5 Mg Tab Ir PO ONCE PRN Pain Radiology Results: ITS Impressions Abdomen/Pelvis CT 04/20/25 08:00 IMPRESSION: 1. 11 mm stone at right ureteropelvic junction with mild right hydronephrosis. 2. 3.0 cm cyst in right ovary, likely a follicular cyst.
--- NOTE | 2025-04-21 09:21 | P.PNIM_ITS ---
Progress Note: A&P Assessment and Plan (1) Kidney stone on right side: Code(s): N20.0 - Calculus of kidney Status: Acute (2) Urinary tract infection: Code(s): N39.0 - Urinary tract infection, site not specified Status: Acute (3) Hydronephrosis: Code(s): N13.30 - Unspecified hydronephrosis Status: Acute Plan 29-year-old female with PMH nicotine vaping, presents to [facility] ER on 04/19/2025 complaining of right-sided abdominal pain. No dysuria or fevers. UA 10-20 WBC's, no RBC's nitrites, or visible bacteria. CT abdomen pelvis showed a 11 mm right-sided proximal stone in the proximal ureter and mild hydronephrosis. Urology consulted. s/p ceftriaxone. Also treated with Dilaudid, but prefers not to have that again. Ureteral stone Hydronephrosis CT abd/pelvis showed an 11mm right ureteropelvic junction with mild right hydronephrosis --Fluids, pain control --Urology following, s/p cystoscopy, right ureteral stent placement --Continue Ceftiraxone Pyuria--11-20 WBC's --Continue Ceftiraxone perioperative. Not clearly infected Acute pain --Oxycodone, Morphine prn --Resting comfortably. --Continue fluids --Zofran p.r.n. FULL CODE SCDs Subjective Date/time seen: 04/21/25 09:21 Interval history: Urology saw her this morning, ok to discharge Review of Systems Review of Systems: All systems reviewed & are unremarkable except as noted in HPI and below (Subjective) Exam Narrative: General - Awake and alert. No acute distress Eyes - PERRLA, EOM intact ENT - No thrush, No erythema Neck - No noticeable or palpable swelling Lymph Nodes - No lymphadenopathy Cardiovascular - RRR no m/r/g, no JVD Lungs: Clear to auscultation, No wheezing, no use of accessory muscles, no crackles Skin - Skin warm and dry, no wounds or rashes Abdomen - Normal bowel sounds, abdomen soft and nontender Extremities - No edema, cyanosis or clubbing Musculoskeletal - 5/5 strength, normal range of motion, no swollen or erythematous joints. Neurological ? Alert and oriented x 3, CN 2-12 grossly intact. Psych: Normal mood and affect Objective Data Vital Signs Vital Signs: Vital Signs - 24 hr 04/20/25 14:00 04/20/25 14:33 04/20/25 15:18 Temperature 97.4 F L 101.9 F H 100.1 F H Pulse Rate 87 104 H 88 Respiratory Rate 14 14 Blood Pressure 100/58 L 107/53 L 98/54 L Pulse Oximetry 100 100 100 Oxygen Delivery Room Air Simple Face Mask Oxygen Flow Rate 8 04/20/25 15:35 04/20/25 15:50 04/20/25 16:06 Temperature 100.1 F H Pulse Rate 87 90 95 Respiratory Rate 16 16 18 Blood Pressure 94/49 L 93/60 L 96/57 L Pulse Oximetry 100 100 99 Oxygen Delivery Simple Face Mask Room Air Room Air Oxygen Flow Rate 8 04/20/25 20:00 04/20/25 22:42 Temperature 97.4 F L Pulse Rate 82 Respiratory Rate 16 Blood Pressure 92/55 L Pulse Oximetry 95 Oxygen Delivery Room Air Oxygen Flow Rate Intake/Output Intake/Output: Intake & Output 04/18/25 04/19/25 04/20/25 04/21/25 23:59 23:59 23:59 23:59 Intake Total 3272.9 1721.2 Output Total 1000 950 Balance 2272.9 771.2 Meds/Results Medications: Active Medications Generic Name Dose Route Start Last Admin Trade Name Freq PRN Reason Stop Dose Admin Fentanyl Citrate 25 mcg 04/20/25 14:06 Fentanyl Citrate Inj (*Crx) 100 Mcg/2 Ml Vial IV PUSH Q2M PRN Pain Sodium Chloride 1,000 mls @ 125 mls/hr 04/20/25 02:20 04/21/25 09:00 Normal Saline Iv IV CONT 125 mls/hr .Q8H ANALISA Administration Morphine Sulfate 2 mg 04/20/25 02:31 04/21/25 05:04 Morphine Sulfate (*Crx) 4 Mg/Ml Inj IV PUSH 2 mg Q2H PRN Administration Pain Rated 7-10 Ondansetron HCl 4 mg 04/20/25 02:19 04/20/25 12:08 Ondansetron Inj 4 Mg/2 Ml Vial IV PUSH 4 mg Q4H PRN Administration Nausea Ondansetron HCl 4 mg 04/20/25 14:06 Ondansetron Inj 4 Mg/2 Ml Vial IV PUSH ONCE PRN Nausea Oxycodone HCl 5 mg 04/20/25 14:06 Oxycodone Hcl (*Crx) 5 Mg Tab Ir PO ONCE PRN Pain Tamsulosin HCl 0.4 mg 04/21/25 09:00 Tamsulosin Hcl 0.4 Mg Capsule PO QAM [facility] Radiology Results: ITS Impressions Abdomen/Pelvis CT 04/20/25 08:00 IMPRESSION: 1. 11 mm stone at right ureteropelvic junction with mild right hydronephrosis. 2. 3.0 cm cyst in right ovary, likely a follicular cyst.
[2025-04-21] MEDS: TAMSULOSIN HCL 0.4 MG CAPSULE PO (09:23)
--- NOTE | 2025-04-21 09:30 | PM.DS ---
DS: Admitting Diagnosis Discharge Date 04/21/2025 Admitting Diagnosis Kidney stone on right side UTI Hydronephrosis DS: Discharge Diagnosis Discharge Diagnosis (1) Hydronephrosis: Code(s): N13.30 - Unspecified hydronephrosis Status: Acute (2) Kidney stone on right side: Code(s): N20.0 - Calculus of kidney Status: Acute (3) Pyuria: Code(s): R82.81 - Pyuria Status: Acute DS: Summary Hospital Course Reason for hospitalization: Copied from [facility] 04/20: 29-year-old female with PMH nicotine vaping, presents to [facility] ER on 04/19/2025 complaining of right-sided abdominal pain. She has a history of UTIs, this feels much worse. She does not have burning on urination. Urinalysis positive for leukocyte esterase and WBC. CT abdomen pelvis showing 11 mm right-sided proximal ureter stone. Urology consulted. Hospitalist being asked to admit. Patient received ceftriaxone, Dilaudid, morphine, 1 L normal saline bolus. Resting comfortably. Hospital Course: 29-year-old female with PMH nicotine vaping, presents to [facility] ER on 04/19/2025 complaining of right-sided abdominal pain, found to have an 11mm kidney stone. Cystoscopy was done on 04/[address] Varma. Afebrile and no dysuria prior to procedure but febrile during procedure. Afebrile after procedure. Ureteral stone Hydronephrosis CT abd/pelvis showed an 11mm right ureteropelvic junction with mild right hydronephrosis. Continued Fluids, pain control Urology consulted and followed during admission, s/p cystoscopy, right ureteral stent placement. Fever UTI--UA 10-20 WBC's, no RBC's nitrites, or visible bacteria. Afebrile prior to procedure but during cystoscopy 04/20 spiked a fever to 101.9. Infection vs reactive. Afebrile 04/21. Received 1 dose of Ceftriaxone preop. Continued bactrim BID pending cultures. Following final cultures. Reporting dysuria and suprapubic discomfort post procedure so should treat for a UTI given fever. Acute pain Continued Oxycodone, Morphine prn during admission. Received 1 dose of Dilaudid during admission, but prefers not to have that again. Discharged with Tylenol/ibuprofen prn Constipation Miralax, senna for bowel regimen Status at Discharge Cognitive/behavioral status at discharge: A&OX4 Time Spent with Patient Time attestation: Total time spent providing and/or coordinating discharge services: Exam Narrative: General - Awake and alert. No acute distress Eyes - PERRLA, EOM intact ENT - No thrush, No erythema Neck - No noticeable or palpable swelling Lymph Nodes - No lymphadenopathy Cardiovascular - RRR no m/r/g, no JVD Lungs: Clear to auscultation, No wheezing, no use of accessory muscles, no crackles Skin - Skin warm and dry, no wounds or rashes Abdomen - Normal bowel sounds, abdomen soft and nontender Extremities - No edema, cyanosis or clubbing Musculoskeletal - 5/5 strength, normal range of motion, no swollen or erythematous joints. Neurological ? Alert and oriented x 3, CN 2-12 grossly intact. Psych: Normal mood and affect Discharge Plan Discharge Attending physician on discharge: Kyra Kilgore Consulting providers: Kyra Kilgore; Don Varela Discharging Clinician: Kyra Kilgore Anticipated Discharge Date/Time: 04/21/25 09:24 Patient Disposition: Home Activity: november shower Diet: regular Discharge Instructions: The urology office will call you back to schedule a lithotripsy in a couple of weeks. Final urine culture is pending OK to use tylenol 1000mg every 6 hours as needed and ibuprofen 800mg every 8 hours as needed for pain (these are high doses so you need to stay hydrated and limit high dose to 3-5 days, especially ibuprofen) Ok to potato picker stool softeners and laxatives over the counter. Increase fiber to 25 grams per day (Example: 1 cup of broccoli 5 grams, 1 cup of raspberries 8 grams, oatmeal 4grams) and stay well hydrated (8 glasses of water a day). Continue linzess. Can take miralax 2-3 times a day as needed and senna tabs twice a day as needed. If you are still having constipation, you can drink a bottle of magnesium citrate (over the counter) or bisacodyl tablets. There are also other options such as suppositories and enemas over the counter that should not be used regularly but can be used occasionally. Patient Instructions: Antibiotic Form Patient Language: [place] Stand Alone Forms: General Discharge Information Follow-up/Referrals: Jermaine Varma MD [Physician, Urology] - 2 Weeks Referral Note: The office will call you or you can contact them to schedule if you do not receive a call Discharge Medications: New tamsulosin 0.4 mg Capsule 0.4 mg PO QAM Qty: 30 0RF sulfamethoxazole-trimethoprim 800-160 mg tablet 1 tablet PO Q12H Qty: 6 0RF polyethylene glycol 3350 [Miralax] 17 gram Powder In Packet 17 g PO BID Qty: 60 0RF sennosides [senna] 8.6 mg tablet 8.6 mg PO BID PRN (Reason: constipation) Qty: 30 0RF Continued Linzess 145 mcg capsule 290 mcg PO QAM Date of admission: 04/20/25 02:20 Primary Care Provider: InduGiulia Admitting Provider: Jackelyn Schneider Attending physician on admission: Jackelyn Schneider Condition: Stable Quality VTE Prophylaxis VTE prophylaxis: pharmacologic ordered Hospitalist MIPS Heart Failure (Exclusion) Patient has history of Heart Transplant or Left Ventricular Assistive Device?: No IF YES, STOP HERE Heart Failure (Qualifier) Patient has current or prior documentation of LVEF less than or equal to 40%, or mod/servere depressed LVSF?: No IF NO, STOP HERE
[2025-04-21] MEDS: SULFAMETHOXAZOLE/TRIMETHOPRIM 800/160 MG DS TABLET 1 TAB PO (10:38)
[2025-04-21 11:23] VITALS: BP 112/67; PULSE 84; RESP 16; TEMP 36.3; O2SAT 100
== END 2025-04-21 12:15 | disposition home or self-care (01) ==
LOC: ANHED 04-20 02:15 → ANH3MEDSUR 04-20 03:59
PROVIDERS: Student in an Organized Health Care Education/Training Program; Urology; Admitting Provider General Practice; Emergency Provider Registered Nurse; PCP Registered Nurse; Visit Provider General Practice
PROC: (CPT 52352; principal; 2025-04-20 15:15)
DX: N13.2 Hydronephrosis with renal and ureteral calculous obstruction (principal); R82.81 Pyuria; N83.201 Unspecified ovarian cyst, right side; Z87.440 Personal history of urinary (tract) infections; Z87.442 Personal history of urinary calculi; Z87.891 Personal history of nicotine dependence; Z80.9 Family history of malignant neoplasm, unspecified
CPT/HCPCS: 52332; 36415; 74177; 74420; 80048; 80053; 81001; 81025; 83690; 83735; 85025; 85610; 87086; 96361; 96365; 96374; 96375; 96376; 99285; A9270; C1758; C1769; C2617; G0378; J0696; J1100; J1171; J2003; J2250; J2270; J2405; J2704; J3010; J7030; J7120; Q9966; Q9967